=== PATIENT | female | born 1970 | race African-American/Black ===

== ENCOUNTER 2016-08-01 15:00 | Emergency (ER) | payer MEDICAID ==
[~2016-08-01] VITALS: Ht 157.5 cm; Wt 75.0 kg
[~2016-08-01 15:00] MED LIST: FERR-43 PO; HYDR25TA PO
[2016-08-01] MEDS ORDERED: HYDROCODONE/ACETAMINOPHEN 10/325MG TABLET PO ONE (20:00)
[2016-08-01] MEDS ORDERED: ONDANSETRON 4MG ODT PO ONE (20:00)
[2016-08-01 20:30] LABS: CLARITY URINE CLOUDY (CLEAR); COLOR URINE DARK YELLOW (YELLOW); GLUCOSE URINE NEGATIVE (NEGATIVE); KETONES URINE NEGATIVE (NEGATIVE); LEUKOCYTE ESTERASE URINE 1+ (NEGATIVE); NITRITE URINE NEGATIVE (NEGATIVE); OCCULT BLOOD URINE 3+ (NEGATIVE); PH URINE 5.5 (4.5-8.0); PROTEIN URINE TRACE (NEGATIVE); SPECIFIC GRAVITY URINE 1.035 (1.005-1.030)
[2016-08-01 20:35] LABS: BASOPHILS % 0.1 % (0.0-2.0); CHLORIDE 107 mEq/L (98-107); EOSINOPHILS % 0.9 % (0.0-5.0); HEMATOCRIT. 30.4 % (36.0-48.0); LYMPHOCYTES % 9.5 % (20.0-50.0); MEAN CORPUSCULAR VOLUME 74.5 fL (81.0-99.0); MEAN PLATELET VOLUME 8.4 fl (7.4-10.4); MONOCYTES % 5.5 % (2.0-8.0); PLATELET 451 x1000/uL (130-400); RED BLOOD CELL COUNT 4.08 mill/uL (4.2-5.4); RED CELL DISTRIBUTION WIDTH 24.7 % (11.6-14.6)
[2016-08-01 20:37] LABS: PROTHROMBIN TIME 10.8 sec
[2016-08-01 20:43] LABS: CARBON DIOXIDE 23 mEq/L (21-32)
[2016-08-01 21:02] LABS: PLATELET ESTIMATE INCREASED
[2016-08-01] MEDS ORDERED: CEFTRIAXONE 1 G PREMIX 50 ML IV ONE (21:15)
[2016-08-01 21:39] VITALS: BP 146/79
[2016-08-01] MEDS ORDERED: SODIUM CHLORIDE 0.9% 1,000 ML IV ONE (22:27)
== END 2016-08-02 00:05 | disposition home or self-care (01) ==
LOC: ER 15:00
DX: N99.89 Other postprocedural complications and disorders of genitourinary system (principal); R79.89 Other specified abnormal findings of blood chemistry; E86.0 Dehydration; N39.0 Urinary tract infection, site not specified; R10.30 Lower abdominal pain, unspecified; I10 Essential (primary) hypertension; Z90.710 Acquired absence of both cervix and uterus
CPT/HCPCS: 36415; 80053; 81001; 83690; 85025; 85610; 87086; 96361; 96365; 99284; J0696; J7030; Q0162; Z7610